=== PATIENT | female | born 1990 | race Caucasian/White ===

== ENCOUNTER 2018-05-05 20:04 | Emergency (ER) | payer SELFPAY | END 2018-05-05 20:20 | disposition left against medical advice (07) | LOC: MADERS 20:04 | DX: Z53.21 Procedure and treatment not carried out due to patient leaving prior to being seen by health care provider (principal) ==

== ENCOUNTER 2018-05-06 20:12 | Emergency (ER) | payer SELFPAY ==
[2018-05-06] MEDS ORDERED: Ibuprofen 800 MG TAB ONE (20:41)
== END 2018-05-06 21:44 | disposition home or self-care (01) ==
LOC: MADERS 20:12
DX: J06.9 Acute upper respiratory infection, unspecified (principal); G43.909 Migraine, unspecified, not intractable, without status migrainosus; F41.9 Anxiety disorder, unspecified; F32.9 Major depressive disorder, single episode, unspecified; F17.210 Nicotine dependence, cigarettes, uncomplicated
CPT/HCPCS: 87804; 99283

== ENCOUNTER 2018-11-09 08:39 | Emergency (ER) | payer SELFPAY ==
[~2018-11-09 08:39] MED LIST: Sodium Chloride Irrig Solution 250 ML BOT ONE
[2018-11-09] MEDS ORDERED: Adacel (T-DAP) 0.5 ML SYRINGE ONE (09:20)
[2018-11-09] MEDS ORDERED: Fentanyl 100 MCG/2 ML VIAL ONE (09:20)
[2018-11-09] MEDS ORDERED: Sodium Chloride 0.9% 1,000 ML ONE (09:20)
--- NOTE | 2018-11-09 09:40 | RAD ---
TWO VIEWS RIGHT TIBIA AND FIBULA: Date: 11-09-18 History: Laceration to leg after cutting leg on metal/tin after sliding down a hill. Injury to distal right lower extremity. FINDINGS: There is soft tissue irregularity seen involving the anterolateral aspect of the right lower extremit y adjacent to the proximal fibular diaphysis compatible with laceration. There is no radiopaque forei gn body seen in this region. No underlying fracture is seen involving the right tibia or fibula. No o ther osseous abnormality. IMPRESSION: 1. Soft tissue defect and laceration involving the anterolateral aspect of the right lower extremity at the level of the proximal fibular diaphysis. 2. No acute osseous abnormality involving the right tibia or fibula. POS: [facility]
[2018-11-09 09:52] LABS: BHCG - Serum Negative (NEGATIVE); Pregs Control Background? CLEAR/WHITE (CLR/WHITE); Pregs Control Bar Appear? YES (CONTROL BAR)
[2018-11-09] MEDS ORDERED: Ketamine 50 MG/ML (10ML VIAL) ONE (10:03)
[2018-11-09] MEDS ORDERED: Lidocaine 1% w/Epinephrine 1:100K 20 ML VIAL ONE (10:03)
[2018-11-09] MEDS ORDERED: Bacitracin Zinc 1 Packet ONE (11:14)
== END 2018-11-09 11:55 | disposition home or self-care (01) ==
LOC: MADERS 08:39
DX: S81.811A Laceration without foreign body, right lower leg, initial encounter (principal); G43.909 Migraine, unspecified, not intractable, without status migrainosus; E78.5 Hyperlipidemia, unspecified; F41.9 Anxiety disorder, unspecified; F32.9 Major depressive disorder, single episode, unspecified; F17.210 Nicotine dependence, cigarettes, uncomplicated; W26.8XXA Contact with other sharp object(s), not elsewhere classified, initial encounter
CPT/HCPCS: 12034; 84703; 90471; 90715; 96361; 96374; 99152; 99153; J2001; J3010; J7050